=== PATIENT | female | born 1965 | race Caucasian/White ===

== ENCOUNTER 2023-06-06 08:47 | Outpatient (AMB) | payer MEDICARE, MEDICAID, SELFPAY ==
--- NOTE | 2023-06-06 09:30 | MHC.OFFVIS ---
Intake Intake Visit Reasons: [employer]-Right knee pain Intake Note: Mikayla is a 57 yr old pre-existing patient of Dr. Banegas. The patient states that she underwent right knee arthroscopic surgery in December of 2021. She got fairly good relief from that surgery initially. The patient states that approximately 1 year ago she re-injured her right knee when she twisted it while getting up off of the floor. Since that time her symptoms have gotten progressively worse. She states that her knee will ?lock up? at times. She has done physical therapy exercises which aggravated her pain. She has also tried Tylenol and anti-inflammatory medicines which gave her minimal relief. Allergies anti-inflamatories Allergy (Mild, Uncoded 06/06/23 09:36) swelling Medication List - Last Reconciled 06/07/23 by Charanjit Banegas MD albuterol sulfate 90 mcg/actuation 2 puffs inhalation QID atenolol 25 mg PO DAILY atorvastatin 80 mg PO DAILY cyclobenzaprine 10 mg PO BEDTIME dexlansoprazole 60 mg PO DAILY dulaglutide (Trulicity) 1.5 mg subcut QWEEK duloxetine 30 mg PO DAILY duloxetine 60 mg PO DAILY empagliflozin (Jardiance) 25 mg PO DAILY fenofibrate micronized 134 mg PO DAILY hydroxyzine HCl 25 mg PO BID PRN metformin 1,000 mg PO BID oxycodone 15 mg PO BID PRN oxycodone ER mg PO ramipril 1.25 mg PO DAILY [facility] Medical History (Updated 06/06/23 @ 09:44 by JEANETTE Gonzáles) Anxiety Depression Nerve pain Diabetes High blood pressure Surgical History (Updated 06/06/23 @ 09:44 by JEANETTE Gonzáles) Hx of right knee surgery History of back surgery Physical Exam Const Other: Well-nourished well-developed very friendly female awake alert and oriented x3 in no acute distress Extrem Other: Bilateral lower extremity examination shows good capillary refill, no skin lesions noted, normal sensation light touch Right knee examination shows a minimal effusion, minimal crepitus with range of motion, tenderness along her medial joint line, positive Malika's test, no instability Results Reviewed Results Reviewed: MRI of the patient's right knee shows mild degenerative changes as well as a tear of the medial meniscus Assessment & Plan Assessment & Plan (1) Right knee pain: Code(s): M25.561 - Pain in right knee Plan Ms. Charles Mckinley presents with progressively worsening right knee pain and mechanical symptoms due to a recurrent medial meniscus tear. I had a lengthy discussion with the patient regarding the treatment options. At this point she has failed continued non operative treatments. The risks and benefits of right knee revision arthroscopic surgery were discussed at length with the patient. The patient wishes to proceed with surgery. Surgery will most likely involve right knee diagnostic arthroscopy with partial medial meniscectomy. The patient does understand that she may not get 100% relief of her symptoms depending on the severity of her degenerative changes. The patient will contact my office to pick a surgery date. She will follow-up as instructed. Feel free to call me at any time should questions regarding her orthopedic management arise. I spent 22 minutes in reviewing the patient's records and imaging studies, seeing the patient and documenting in the medical record. Orders: Orders XR knee RT 3V 06/06/23 M25.561 - Pain in right knee Coding Level of Care Code Est Pt Level 2 (48058) Diagnoses Right knee pain M25.561
== END 2023-06-06 10:04 | disposition home or self-care (01) ==
PROVIDERS: PCP Internal Medicine; Visit Provider Orthopaedic Surgery
DX: S83.241A Other tear of medial meniscus, current injury, right knee, initial encounter (principal)
CPT/HCPCS: 99213

== ENCOUNTER 2023-06-06 11:06 | Outpatient (REF) | payer MEDICARE, MEDICAID, SELFPAY | END 2023-06-06 11:07 | disposition home or self-care (01) | LOC: HO.HOSX 11:06 | PROVIDERS: Visit Provider Orthopaedic Surgery | DX: M25.561 Pain in right knee (principal) | CPT/HCPCS: 99212 ==

== ENCOUNTER → 2023-07-19 07:48 | Day surgery (SDC) | payer MEDICARE, MEDICAID, SELFPAY ==
[2023-07-16 14:06] VITALS: BMI 27.5
[2023-07-19] VITALS (9 sets, daily range): BP systolic 107–129; BP diastolic 73–86; PULSE 73–87; RESP 14–16; TEMP 36.1–36.7; O2SAT 93–100; BMI 28.1
[2023-07-19] MEDS: Lactated Ringers 1,000 ML 100 ML IVCONT (08:53)
--- NOTE | 2023-07-19 08:55 | HO.ANESPROP2 ---
Documented by User: Palmira Mccord NP 07/18/23 09:58 HPI - Anesthesia Eval Consult details Narrative: 58yo F for Right Knee Arthroscopy with partial medial menisectomy Medically cleared Anesthesia Pre-Procedure Meds Is the patient on any of the following meds?: Dulaglutide (Trulicity) PMFSH Active Problems Active Problems: All Active Problems (Updated 07/16/23 @ 14:05 by Sumaya Gann RN) Right knee pain (Acute) Past Medical History Medical History COVID-19 Spinal stenosis GERD (gastroesophageal reflux disease) Elevated cholesterol Anxiety Depression Nerve pain Diabetes High blood pressure Surgical History Surgical History (Updated 07/16/23 @ 13:55 by Sumaya Gann RN) Hx of neck surgery Hx of right knee surgery History of back surgery Social History Social History (Updated 07/16/23 @ 14:06 by Sumaya Gann RN) Patient Tobacco Use Status: Current everyday Tobacco user Tobacco use type: Cigarette Cigarette Packs Per Day: 1 Cigarettes Per Day: 20.0 Use of substances other than those prescribed or required for medical reasons: No Are you DNR?: No Advance Directives: No Advance Directives Information Provided: Yes Meds Allergies Allergy/AdvReac Type Severity Reaction Status Date / Time NSAIDS (Non-Steroidal Allergy Mild Swelling Verified 07/16/23 13:46 Anti-Inflamma Active Medications: Current Medications Cefazolin Sodium/Dextrose (Ancef) 2 gm in 50 mls @ 100 mls/hr IV PREOP ONE Stop: 07/19/23 06:23 Home Medications Medication Instructions Recorded Confirmed Last Taken Type albuterol sulfate 90 mcg/actuation 2 puff inhalation QID 06/06/23 07/16/23 Unknown History aerosol inhaler atenolol 25 mg tablet 25 mg PO DAILY 06/06/23 07/16/23 Unknown History atorvastatin 80 mg tablet 80 mg PO DAILY 06/06/23 07/16/23 Unknown History cyclobenzaprine 10 mg tablet 10 mg PO BEDTIME 06/06/23 07/16/23 Unknown History dexlansoprazole 60 mg 60 mg PO DAILY 06/06/23 07/16/23 Unknown History capsule,biphase delayed release dulaglutide 1.5 mg/0.5 mL 1.5 mg subcut QWEEK 06/06/23 07/16/23 07/09/23 History subcutaneous pen injector (Trulicity) duloxetine 30 mg capsule,delayed 30 mg PO DAILY 06/06/23 07/16/23 Unknown History release duloxetine 60 mg capsule,delayed 60 mg PO DAILY 06/06/23 07/16/23 Unknown History release empagliflozin 25 mg tablet 25 mg PO DAILY 06/06/23 07/16/23 Unknown History (Jardiance) fenofibrate micronized 134 mg 134 mg PO DAILY 06/06/23 07/16/23 Unknown History capsule hydroxyzine HCl 25 mg tablet 25 mg PO BID PRN Pain 06/06/23 07/16/23 Unknown History metformin 1,000 mg tablet 1,000 mg PO BID 06/06/23 07/16/23 Unknown History oxycodone 15 mg tablet 15 mg PO BID PRN 06/06/23 06/07/23 Unknown History oxycodone 20 mg tablet,extended mg PO 06/06/23 06/07/23 Unknown History release,12 hr ramipril 1.25 mg capsule 1.25 mg PO DAILY 06/06/23 07/16/23 Unknown History Exam Height,Weight and Vital Signs: Height 5 ft 4 in Weight 72.575 kg Pertinent Lab Results Pertinent Lab Results: BMP from outside facility 05/2023 WNL Narrative Narrative: EKG 07/2023 NSR Assessment and Plan Assessment Anesthesia Assessment: Chart Reviewed Documented by User: Lucía Recio DO 07/19/23 09:54 HPI - Anesthesia Eval Anesthesia Pre-Procedure Meds Is the patient on any of the following meds?: Dulaglutide (Trulicity) (last dose was 10 days ago) If Yes to any meds - educate patient: Pt education - increased risk of aspiration PMFSH Past Medical History Medical History COVID-19 Spinal stenosis GERD (gastroesophageal reflux disease) Elevated cholesterol Anxiety Depression Nerve pain Diabetes High blood pressure Family History Family history of problems with anesthesia: No Surgical History Surgical History (Updated 07/16/23 @ 13:55 by Sumaya Gann RN) Hx of neck surgery Hx of right knee surgery History of back surgery History of Problems with Anesthesia: No Social History Social History (Updated 07/16/23 @ 14:06 by Sumaya Gann RN) Patient Tobacco Use Status: Current everyday Tobacco user Tobacco use type: Cigarette Cigarette Packs Per Day: 1 Cigarettes Per Day: 20.0 Use of substances other than those prescribed or required for medical reasons: No Are you DNR?: No Advance Directives: No Advance Directives Information Provided: Yes Meds Allergies Allergy/AdvReac Type Severity Reaction Status Date / Time NSAIDS (Non-Steroidal Allergy Mild Swelling Verified 07/16/23 13:46 Anti-Inflamma Home Medications Medication Instructions Recorded Confirmed Last Taken Type albuterol sulfate 90 mcg/actuation 2 puff inhalation QID 06/06/23 07/16/23 Unknown History aerosol inhaler atenolol 25 mg tablet 25 mg PO DAILY 06/06/23 07/16/23 Unknown History atorvastatin 80 mg tablet 80 mg PO DAILY 06/06/23 07/16/23 Unknown History cyclobenzaprine 10 mg tablet 10 mg PO BEDTIME 06/06/23 07/16/23 Unknown History dexlansoprazole 60 mg 60 mg PO DAILY 06/06/23 07/16/23 Unknown History capsule,biphase delayed release dulaglutide 1.5 mg/0.5 mL 1.5 mg subcut QWEEK 06/06/23 07/16/23 07/09/23 History subcutaneous pen injector (Trulicity) duloxetine 30 mg capsule,delayed 30 mg PO DAILY 06/06/23 07/16/23 Unknown History release duloxetine 60 mg capsule,delayed 60 mg PO DAILY 06/06/23 07/16/23 Unknown History release empagliflozin 25 mg tablet 25 mg PO DAILY 06/06/23 07/16/23 Unknown History (Jardiance) fenofibrate micronized 134 mg 134 mg PO DAILY 06/06/23 07/16/23 Unknown History capsule hydroxyzine HCl 25 mg tablet 25 mg PO BID PRN Pain 06/06/23 07/16/23 Unknown History metformin 1,000 mg tablet 1,000 mg PO BID 06/06/23 07/16/23 Unknown History oxycodone 15 mg tablet 15 mg PO BID PRN 06/06/23 06/07/23 Unknown History oxycodone 20 mg tablet,extended mg PO 06/06/23 06/07/23 Unknown History release,12 hr ramipril 1.25 mg capsule 1.25 mg PO DAILY 06/06/23 07/16/23 Unknown History Exam Exam Date and Time: July 19, 2023 0855 Height,Weight and Vital Signs: Height 5 ft 4 in Weight 72.575 kg Height 5 ft 4 in Weight 74.389 kg Vital Signs Temperature 98.1 F 07/19/23 08:35 Pulse Rate 79 07/19/23 08:35 Respiratory Rate 16 07/19/23 08:35 Pulse Oximetry 98 07/19/23 08:35 Oxygen Delivery Method Room Air 07/19/23 08:35 Temperature 98.1 F 07/19/23 08:35 Pulse Rate 79 07/19/23 08:35 Respiratory Rate 16 07/19/23 08:35 Pulse Oximetry 98 07/19/23 08:35 Oxygen Delivery Method Room Air 07/19/23 08:35 Airway Mallampati Class: II TM Dist: >3cm Neck ROM: Full Loose/Missing/Broken Teeth: Yes (broken molar right bottom jaw) Heart: S1S2 Lungs: CTAB Assessment and Plan Assessment Anesthesia Assessment: Anesthesia Plan Discussed and Chart Reviewed Final Anesthetic Review Family History of Problems with Anesthesia: No History of Problems with Anesthesia: No NPO: Yes ASA Class: II Final Preanesthetic Review: No Changes in Pt Med Stat, Meds/Allgs Chart Reviewed, Consent Obtained/Reviewed and Anes Risks/Benef Reviewed Patient Risk: Low Procedure Risk: Low Anesthetic Plan Anesthetic Plan: GA and Agree w/ Assess. and Plan Disposition: Standard PACU
[2023-07-19 08:58] LABS: Glucose, Whole Blood 136 mg/dL (60-115)
[2023-07-19] MEDS: fentaNYL citrate/PF 100 MCG/2 ML VIAL 50 MCG IVPUSH (11:26)
--- NOTE | 2023-07-19 11:27 | P.BOP_ITS ---
Brief Operative Note Date of Service: 07/19/23 Pre-op diagnosis: Right knee medial meniscus tear Post-op diagnosis: same Procedure: Right knee diagnostic arthroscopy with right knee arthroscopic partial medial meniscectomy Implants: None Surgeon: Charanjit Banegas MD Anesthesia: GLMA Was an Manager Commercial Sales used for this Procedure?: No Estimated blood loss (mL): 10 Pathology: none sent Condition: stable Disposition: PACU
--- NOTE | 2023-07-19 11:28 | W.PM.OPN ---
Operative Note Operative Note Date of Service: 07/19/23 Narrative: After the patient was identified as Mikayla Mckinley and her right knee was initialed by myself they were brought to the operating room where general anesthesia was induced by the anesthesiologist in routine fashion. The patient was given 2 g of IV Ancef for infection prophylaxis. A formal time-out was completed. The patient's right lower extremity was prepped and draped in sterile fashion. Marcaine with epinephrine was injected into the planned incision sites as well as their right knee joint. A # 11 scalpel blade was used to make an anterolateral portal 1 cm proximal to the joint line and 1 cm lateral to the patellar tendon. Blunt trocar technique was used into the suprapatellar pouch with the knee in extension. Diagnostic arthroscopy showed multiple bands of thickened plica which would be excised at the end of the procedure. There were no loose bodies or abnormalities found in either the medial or lateral gutters. There were diffuse grades 1 and 2 degenerative changes of the undersurface of the patella as well as grade 1 degenerative changes of the trochlear groove. The patient's knee was flexed to 45 degrees and a valgus force was placed upon it. The medial compartment was entered. An anteromedial portal was made 1 cm proximal to the joint line and 1 cm medial to the patellar tendon. Probing of the medial meniscus showed a bucket-handle tear. A partial medial meniscectomy was performed using the arthroscopic shaver, arthroscopic biter and arthroscopic grasper. Following the partial meniscectomy the remainder of the meniscus tissue was stable. There were diffuse grades 1 and 2 degenerative changes of the medial femoral condyle as well as diffuse grades 1 and 2 degenerative changes of the medial tibial plateau. The articular surface of the medial femoral condyle was made smooth using the arthroscopic shaver. The articular surface of the medial tibial plateau was already smooth so no chondroplasty was indicated. The patient's knee was then placed into a neutral position. There was no injury to the anterior cruciate ligament. The patient's knee was then placed into the figure of 4 position and the lateral compartment was entered. There were minimal degenerative changes of the lateral femoral condyle and lateral tibial plateau. There was no evidence of lateral meniscus tearing. The patient's knee was once again brought into extension and the suprapatellar pouch was entered. The arthroscopic shaver and the ArthroCare Wand were used to excise the thickened bands of plica. The undersurface of the patella was then made smooth using the arthroscopic shaver. The articular surface of the trochlear groove was already smooth so no chondroplasty was indicated. The knee joint was irrigated and then drained. All arthroscopic instruments were removed. The 2 portals were closed with 3-0 nylon interrupted suture. The knee joint was injected with Marcaine. Dry sterile dressing and Isaias bandages were placed over the patient's knee. The patient was woken and expand the operating room. They were transferred to the recovery room in stable condition.
[2023-07-19] MEDS: cefTRIAXone sodium 1 GM in 0.9 % Sodium Chloride 50 ML IV (11:32)
== END | disposition home or self-care (01) ==
PROVIDERS: PCP Internal Medicine; Visit Provider Orthopaedic Surgery
PROC: (CPT 29870; principal; 2023-07-19 10:10)
DX: S83.211A Bucket-handle tear of medial meniscus, current injury, right knee, initial encounter (principal); M25.561 Pain in right knee; M17.11 Unilateral primary osteoarthritis, right knee; M23.91 Unspecified internal derangement of right knee; M67.51 Plica syndrome, right knee; X50.1XXA Overexertion from prolonged static or awkward postures, initial encounter; Y93.89 Activity, other specified; Y92.9 Unspecified place or not applicable; Y99.9 Unspecified external cause status; I10 Essential (primary) hypertension; M79.2 Neuralgia and neuritis, unspecified; E11.9 Type 2 diabetes mellitus without complications; F32.A Depression, unspecified; F41.9 Anxiety disorder, unspecified; Z79.84 Long term (current) use of oral hypoglycemic drugs; Z79.85 Long-term (current) use of injectable non-insulin antidiabetic drugs; Z79.899 Other long term (current) drug therapy; Z88.8 Allergy status to other drugs, medicaments and biological substances; Z98.890 Other specified postprocedural states
CPT/HCPCS: 29881; 82947; J0131; J0171; J0690; J0696; J1100; J1170; J2405; J2704; J2795; J3010

== ENCOUNTER → 2023-07-19 07:48 | Outpatient (BNV) | payer MEDICARE, MEDICAID, SELFPAY | PROVIDERS: PCP Internal Medicine; Visit Provider Orthopaedic Surgery | DX: S83.211A Bucket-handle tear of medial meniscus, current injury, right knee, initial encounter (principal) | CPT/HCPCS: 29881 ==

== ENCOUNTER 2023-08-01 08:58 | Outpatient (AMB) | payer MEDICARE, MEDICAID, SELFPAY ==
--- NOTE | 2023-08-01 09:13 | MHC.OFFVIS ---
Intake Intake Visit Reasons: PO-Rt Knee 07/19/23 DR Intake Note: Mikayla is a 58 year old female who presents for her post operative appointment s/p Right knee on 07/19/2023. Patient reports she is feeling some tightness with a little pain. She is doing some home exercises that is going well. She denies any fevers or chills. Allergies NSAIDS (Non-Steroidal Anti-Inflamma Allergy (Mild, Verified 08/01/23 09:18) Swelling Medication List - Last Reconciled 08/01/23 by Charanjit Banegas MD albuterol sulfate 90 mcg/actuation 2 puffs inhalation QID atenolol 25 mg PO DAILY atorvastatin 80 mg PO DAILY cyclobenzaprine 10 mg PO BEDTIME dexlansoprazole 60 mg PO DAILY dulaglutide (Trulicity) 1.5 mg subcut QWEEK duloxetine 30 mg PO DAILY duloxetine 60 mg PO DAILY empagliflozin (Jardiance) 25 mg PO DAILY fenofibrate micronized 134 mg PO DAILY hydroxyzine HCl 25 mg PO BID PRN metformin 1,000 mg PO BID oxycodone 15 mg PO BID PRN oxycodone ER mg PO ramipril 1.25 mg PO DAILY PFSH Medical History COVID-19 Spinal stenosis GERD (gastroesophageal reflux disease) Elevated cholesterol Anxiety Depression Nerve pain Diabetes High blood pressure Surgical History (Updated 08/01/23 @ 09:23 by Lucía Loaiza CMA) Hx of right knee surgery (07/19/23) Hx of neck surgery Hx of right knee surgery History of back surgery Social History (Updated 07/16/23 @ 14:06 by Sumaya Gann RN) Patient Tobacco Use Status: Current everyday Tobacco user Tobacco use type: Cigarette Cigarette Packs Per Day: 1 Cigarettes Per Day: 20.0 Physical Exam Extrem Other: Right knee examination shows that the surgical incisions are healing well, no erythema, minimal discomfort with range of motion Assessment & Plan Assessment & Plan (1) Right knee pain: Code(s): M25.561 - Pain in right knee Plan Ms. Charles Mckinley is doing well after undergoing right knee arthroscopic surgery on 07/19/2023. Her sutures were removed and Steri-Strips placed over her incisions. She will gradually progress to activities as tolerated. She will contact me prior to her follow-up appointment in 6 weeks should any questions or concerns arise. Feel free to call me at any time should questions regarding her orthopedic management arise. Coding Level of Care Code Global (66935) Diagnoses Right knee pain M25.561
== END 2023-08-01 09:50 | disposition home or self-care (01) ==
PROVIDERS: PCP Internal Medicine; Visit Provider Orthopaedic Surgery
DX: M25.561 Pain in right knee (principal)
CPT/HCPCS: 99024

== ENCOUNTER → 2023-08-01 08:58 | Outpatient (BNVA) | payer MEDICARE, MEDICAID, SELFPAY | PROVIDERS: PCP Internal Medicine; Visit Provider Orthopaedic Surgery | DX: Z47.89 Encounter for other orthopedic aftercare (principal); M25.561 Pain in right knee; Z98.890 Other specified postprocedural states | CPT/HCPCS: 99212 ==